=== PATIENT | female | born 1995 | race Hispanic/Latino ===

== ENCOUNTER 2024-12-30 19:00 | Emergency (ER) | payer OTHER ==
[~2024-12-30] VITALS: Ht 157.5 cm; Wt 95.3 kg
--- NOTE | 2024-12-30 19:43 | ERN ---
General Chief Complaint: Congestion Stated Complaint: COUGH Time Seen by MD: 19:03 Time Seen by Midlevel: 19:03 Source: patient History of Present Illness Initial Comments 29-year-old female who presents to the emergency department due to productive cough. Patient reports fever, congestion, back pain but denies any chest pain, shortness of breath, abdominal pain or further associated symptoms. Patient reports she was diagnosed with influenza two days ago and was prescribed medica tions. Patient states she has been taking medications as prescribed but feels no improvement. PMHx asthma Allergies: Coded Allergies: No Known Drug Allergies (Unverified Allergy, Unknown, 12/30/24) Home Meds Active Scripts Albuterol Sulfate (Albuterol Sulfate) 2.5 Mg/0.5 Ml Vial.neb, 2.5 MG IH Q4HPRN, #30 INH 0 Refills Prov:MAXIMILIANO CA 12/30/24 Benzonatate (Tessalon Perles) 100 Mg Cap, 200 MG PO TID for cough for 5 Days, #30 CAP 0 Refills Prov:MAXIMILIANO CA 12/30/24 Azithromycin (Azithromycin) 250 Mg Tablet, 1 TAB PO AD for 5 Days, #6 TAB 0 Refills 2 the first day followed by 1 for days 2-5 Prov:MAXIMILIANO CA 12/30/24 Past Medical History Past Medical History: Asthma Past Surgical History: None ROS Dictation Constitutional: Positive for fever Negative for chills, and weight loss Eyes: Negative for injury, pain,redness, and discharge ENT: Positive for congestion Negative for injury,pain or swelling Cardiovascular: Negative for chest pain, palpitations, and edema Respiratory: Positive for productive cough Negative for shortness of breath, and wheezing, Abdomen/GI: Negative for abdominal pain, nausea, vomiting, diarrhea, and constipation Back: Negative for injury and pain : Negative for painful urination, bleeding or discharge MS/Extremity: Negative for injury and deformity Skin: Negative for rash, and discoloration Neuro: Negative for headache, weakness, numbness, tingling, and seizure Psych: Negative for suicide ideation, homicidal ideation, and hallucinations Physical Exam Physical Exam Dictation General: awake, alert, no acute distress Head/Face: Normocephalic, atraumatic Eyes: PERRL, EOMI, normal conjunctiva ENT: oral cavity clear, oral mucosa moist Neck: Supple, normal range of motion Cardiovascular: RRR, normal S1/S2 Respiratory: CTAB, no respiratory distress, crackles and wheezing auscultated bilaterally Abdomen: Soft, non-tender, non-distended, no guarding or rebound. Skin: Warm, dry, normal turgor, no rash MS/Extremity: Pulses equal, no cyanosis, neurovascular intact, FROM Neuro: COAx4, GCS 15, strength 5/5, CN 2-12 intact, normal cerebellar exam, normal gait Psych: Normal behavior, mood, and affect normal Results Laboratory and Microbiology Lab and Micro Result Laboratory Tests Test 12/30/24 19:33 White Blood Count 12.8 K/uL (4.8-10.8) H Red Blood Count 4.63 MIL/uL (4.00-5.50) Hemoglobin 12.9 g/dL (12.0-16.0) Hematocrit 39.8 % (36-48) Mean Corpuscular Volume 86.0 fL (79-99) Mean Corpuscular Hemoglobin 27.9 pg (27.0-33.0) Mean Corpuscular Hemoglobin Concent 32.4 g/dL (32.0-36.0) Red Cell Distribution Width 12.8 % (11.0-15.5) Platelet Count 358 K/uL (130-400) Mean Platelet Volume 10.0 fL (7.5-10.5) Immature Granulocyte % (Auto) 0.2 % (0-1) Neutrophils (%) (Auto) 74.0 % (40.0-77.0) Lymphocytes (%) (Auto) 18.2 % (21.0-51.0) L Monocytes (%) (Auto) 4.6 % (3.0-13.0) Eosinophils (%) (Auto) 2.8 % (0.0-8.0) Basophils (%) (Auto) 0.2 % (0.0-5.0) Neutrophils # (Auto) 9.5 K/uL (1.8-7.7) H Lymphocytes # (Auto) 2.3 K/uL (1.0-4.8) Monocytes # (Auto) 0.6 K/uL (0.1-1.0) Eosinophils # (Auto) 0.36 K/uL (0.00-0.70) Basophils # (Auto) 0.03 K/uL (0.00-0.20) Absolute Immature Granulocyte (auto 0.03 K/uL (0-1) Nucleated Red Blood Cells 0.0 % (0.0-0.19) Sodium Level 143 mmol/L (136-145) Potassium Level 4.2 mmol/L (3.5-5.1) Chloride Level 107 mmol/L (101-111) Carbon Dioxide Level 32 mmol/L (21-32) Blood Urea Nitrogen 11 mg/dL (7-18) Creatinine 0.6 mg/dL (0.5-1.0) Glomerular Filtration Rate Calc 126 mL/min (>90) Random Glucose 91 mg/dL (70-105) Total Calcium 9.4 mg/dL (8.5-10.1) Labs Reviewed?: Yes MDM MDM: Differential diagnosis: Influenza, pneumonia, URI, bronchitis, asthma exacerbation Rationale: 29-year-old female who presents to the emergency department due to productive cough. Patient reports fever, congestion, back pain but denies any chest pain, shortness of breath, abdominal pain or further associated symptoms. Patient reports she was diagnosed with influenza two days ago and was prescribed medications. Patient states she has been taking medications as prescribed but feels no improvement. PMHx asthma Per physical examination crackles and wheezing auscultated bilaterally. Labs obtained indicate leukocytosis of 12.8, chemistry within normal limits. Chest x-ray impression no acute cardiopulmonary process. Patient received two DuoNeb treatments in the ED, and an hour continuous albuterol treatment. The patient verbalized feeling better after a three nebulized treatments. She was educated on findings and diagnosis. Advised to follow up with PCP. Return to the emergency department if any worsening symptoms. Patient verbalized understanding. Patient stable for discharge. There are no social concerns with this patient. I independently interpreted the test that were performed, results were reviewed by me and considered findings on radiology if ordered. Medical management and examination interpretation discussions were had by me with other qualified healthcare professionals as indicated for the patient's care. ED Course Orders Procedure Category Date Status Time Cbc With Differential LAB 12/30/24 Complete 19:20 Basic Metabolic Panel LAB 12/30/24 Complete 19:20 Chest 1vw RAD 12/30/24 Resulted 19:20 Ipratropium/Albuterol PHA 12/30/24 Complete Neb (Duoneb) 19:30 0.9%Nacl 1000ml (Ns PHA 12/30/24 Complete 1000ml) 20:00 Ipratropium/Albuterol PHA 12/30/24 Complete Neb (Duoneb) 19:41 Ipratropium/Albuterol PHA 12/30/24 Complete Neb (Duoneb) 20:00 Ondansetron Odt 4mg PHA 12/30/24 Complete Tab (Zofran 4mg Odt) 21:00 Albuterol 0.083% PHA 12/30/24 Complete 2.5mg/3ml (Proventil 21:30 Albuterol 0.083% PHA 12/30/24 Complete 2.5mg/3ml (Proventil 21:30 Benzonatate 100 Mg PHA 12/30/24 Complete Capsule (Tessalon 100 22:30 Current Medications Medications (Trade) Dose Ordered Sig/Korin Route PRN Reason Start Time Stop Time Status Last Admin Dose Admin Albuterol (DUOneb) 1 udvial ONCE ONCE IH 12/30/24 19:30 12/30/24 19:44 DC 12/30/24 19:51 Albuterol (DUOneb) 1 udvial ONCE ONCE IH 12/30/24 20:00 12/30/24 20:02 DC 12/30/24 20:07 Albuterol (DUOneb) 1 udvial STK-MED ONCE IH 12/30/24 19:41 12/30/24 19:42 DC Albuterol Sulfate (Proventil 0.083% 2.5mg/3ml) 1 mg ONCE ONCE IH 12/30/24 21:30 12/30/24 21:31 DC Albuterol Sulfate (Proventil 0.083% 2.5mg/3ml) 10 mg ONCE ONCE IH 12/30/24 21:30 12/30/24 21:31 DC 12/30/24 21:45 Benzonatate (Tessalon 100mg Caps) 100 mg ONCE ONCE PO 12/30/24 22:30 12/30/24 22:31 DC 12/30/24 22:23 Ondansetron HCl (zoFRAN 4MG ODT) 4 mg ONCE ONCE SL 12/30/24 21:00 12/30/24 21:01 DC 12/30/24 21:03 Sodium Chloride 1,000 ml @ 0 mls/hr ONCE ONCE IV 12/30/24 20:00 12/30/24 20:01 DC 12/30/24 19:58 Vital Signs Date Time Temp Pulse Resp B/P (MAP) Pulse Ox O2 Delivery O2 Flow Rate FiO2 12/30/24 22:18 98.2 99 19 145/86 99 Room Air* 0 21 12/30/24 21:50 88 18 12/30/24 20:09 89 17 12/30/24 19:54 77 17 12/30/24 19:02 98.2 87 16 148/98 98 Room Air DX & DISP Disposition: Discharge Departure Impression: Primary Impression: URI (upper respiratory infection) Condition: Stable Scripts Albuterol Sulfate (Albuterol Sulfate) 2.5 Mg/0.5 Ml Vial.neb 2.5 MG IH Q4HPRN, #30 INH 0 Refills Prov: MAXIMILIANO CA 12/30/24 Benzonatate (Tessalon Perles) 100 Mg Cap 200 MG PO TID for cough for 5 Days, #30 CAP 0 Refills Prov: MAXIMILIANO CA 12/30/24 Azithromycin (Azithromycin) 250 Mg Tablet 1 TAB PO AD for 5 Days, #6 TAB 0 Refills 2 the first day followed by 1 for days 2-5 Prov: MAXIMILIANO CA 12/30/24 Additional Instructions: Discharge home. Rest. Follow up with primary care in 24 hours. Return to the ER for any acute changes or worsening symptoms. If any medications were prescribed take as directed. Okay to continue home medications unless otherwise discussed during your visit in the emergency room today. Patient was also advised to follow-up with primary care physician in 1 to 2 days for continued monitoring. Referrals: SELF,REFERRAL (PCP) I performed the substantive portion of the visit. I have reviewed and personally made and approve the management plan that is documented in the notes by myself or the NANCY. I acknowledge full responsibility for the patient's management plan. MAXIMILIANO CA December 30, 2024 19:43
[2024-12-30 19:47] LABS: BASOPHILS # (AUTO) 0.03 K/uL (0.00-0.20); BASOPHILS % (AUTO) 0.2 % (0.0-5.0); EOSINOPHILS # (AUTO) 0.36 K/uL (0.00-0.70); EOSINOPHILS % (AUTO) 2.8 % (0.0-8.0); HEMATOCRIT 39.8 % (36-48); IMMATURE GRANULOCYTE ABSOLUTE 0.03 K/uL (0-1); LYMPHOCYTES # (AUTO) 2.3 K/uL (1.0-4.8); LYMPHOCYTES % (AUTO) 18.2 % (21.0-51.0); MEAN CORPUSCULAR HEMOGLOBIN 27.9 pg (27.0-33.0); MEAN CORPUSCULAR HGB CONC 32.4 g/dL (32.0-36.0); MONOCYTES # (AUTO) 0.6 K/uL (0.1-1.0); MONOCYTES % (AUTO) 4.6 % (3.0-13.0); NEUTROPHILS # (AUTO) 9.5 K/uL (1.8-7.7); PLATELET COUNT (AUTO) 358 K/uL (130-400); RED BLOOD CELL COUNT(AUTO) 4.63 MIL/uL (4.00-5.50); RED CELL DISTRIBUTION WIDTH 12.8 % (11.0-15.5); WHITE BLOOD COUNT (AUTO) 12.8 K/uL (4.8-10.8)
[2024-12-30] MEDS: IpraTROPium/alBUTERol SULFATE 3 ML SOLUTION IH ONE ×3 (19:51→20:07)
[2024-12-30 19:54] VITALS: PULSE 77; RESP 17
[2024-12-30] MEDS: 0.9%NACL 1000ML 1,000 ML IV ONE (19:58)
[2024-12-30 20:01] LABS: CREATININE 0.6 mg/dL (0.5-1.0); POTASSIUM 4.2 mmol/L (3.5-5.1)
--- NOTE | 2024-12-30 20:01 | HMCIMG ---
PORTABLE CHEST RADIOGRAPH INDICATION: Cough COMPARISON: None FINDINGS: Heart size is normal. The pulmonary vascularity and [place] appear normal. No abnormal pulmonary parenchymal opacity or consolidation identified. No significant pleural effusion noted. No pneumothorax detected. IMPRESSION: No radiographic evidence for any acute cardiopulmonary process.
[2024-12-30 20:09] VITALS: PULSE 89; RESP 17
[2024-12-30] MEDS: ondanSETRON ODT 4MG TAB SL ONE (21:03)
[2024-12-30] MEDS: ALBUTEROL 0.083% 2.5 MG/3 ML INH IH ONE ×2 (21:45→21:49)
[2024-12-30 21:50] VITALS: PULSE 88; RESP 18
[2024-12-30 22:18] VITALS: BP 145/86; PULSE 99; RESP 19; TEMP 98.2; O2SAT 99
[2024-12-30] MEDS: BENZONATATE 100 MG CAPSULE PO ONE (22:23)
[2024-12-30] MEDS ORDERED: AZIT250T9 PO (22:31)
[2024-12-30] MEDS ORDERED: BENZ-39 PO (22:31)
[2024-12-30] MEDS ORDERED: AUD IH (22:31)
== END 2024-12-30 22:40 | disposition home or self-care (01) ==
LOC: EDH 19:00
DX: J06.9 Acute upper respiratory infection, unspecified (principal); J45.909 Unspecified asthma, uncomplicated
CPT/HCPCS: 99285; 71045; 80048; 85025; 36415; 94640; J7030